=== PATIENT | male | born 1985 | race Caucasian/White ===

== ENCOUNTER 2018-07-19 20:04 | Emergency (ER) | payer SELFPAY ==
[~2018-07-19] VITALS: Ht 172.7 cm; Wt 112.0 kg
[2018-07-19 20:18] VITALS: Ht 172.7 cm; Wt 112.0 kg
[2018-07-19 22:06] VITALS: BP 129/87
== END 2018-07-19 22:06 | disposition home or self-care (01) ==
LOC: ED 20:04
DX: S29.011A Strain of muscle and tendon of front wall of thorax, initial encounter (principal); V43.52XA Car driver injured in collision with other type car in traffic accident, initial encounter; Y93.I9 Activity, other involving external motion; Y92.488 Other paved roadways as the place of occurrence of the external cause; Y99.8 Other external cause status